=== PATIENT | female | born 1945 | race Caucasian/White ===

== ENCOUNTER 2019-12-26 16:01 | Inpatient (IN) | payer MEDICARE, OTHER ==
[~2019-12-26] VITALS: Ht 167.6 cm; Wt 86.2 kg
[2019-12-26 16:12] VITALS: BP 148/65
[2019-12-26] MEDS ORDERED: VENLAFAXINE HCL75 MG PO (16:20)
[2019-12-26] MEDS ORDERED: RISPERDAL0.5 MG PO (16:20)
[2019-12-26] MEDS ORDERED: ARICEPT10 M1 PO (16:21)
[2019-12-26] MEDS ORDERED: CRANBERRY200 MG PO (16:21)
[2019-12-26] MEDS ORDERED: GLUCOPHAGE1000 MG PO (16:21)
[2019-12-26] MEDS ORDERED: MIDODRINE HCL2.5 M1 PO (16:22)
[2019-12-26] MEDS ORDERED: LEXAPRO20 MG PO (16:22)
[2019-12-26] MEDS ORDERED: B12 ACTIVE1000 MCG PO (16:22)
[2019-12-26] MEDS ORDERED: PRANDIN1 MG PO (16:22)
[2019-12-26] MEDS ORDERED: CYPROHEPTADINE 44 MG PO (16:23)
[2019-12-26] MEDS ORDERED: MELATONIN5 M4 PO (16:23)
[2019-12-26] MEDS ORDERED: TRAZODONE HCL50 MG PO (16:23)
[2019-12-26] MEDS ORDERED: REMERON15 M1 PO (16:24)
[2019-12-26 16:26] LABS: ABSOLUTE EOSINOPHILS 0.1 thou/uL (0.0-0.7); ABSOLUTE LYMPHOCYTES 1.6 thou/uL (0.8-5.3); ABSOLUTE MONOCYTES 0.4 thou/uL (0.0-1.2); ABSOLUTE NEUTROPHILS 2.8 thou/uL (1.6-8.1); BASOPHILS 0.4 %; EOSINOPHILS 2.7 %; HEMATOCRIT 39.3 % (37.0-47.0); HEMOGLOBIN 13.1 gm/dL (12.0-15.0); LYMPHOCYTES 31.8 %; MCH 29.2 pg (26.0-34.0); MCHC 33.3 g/dL (28.0-37.0); MCV 87.4 fL (80.0-100.0); MONOCYTES 8.9 %; MPV 8.2 fl. (7.2-11.1); NUCLEATED RBCS 0 /100WBC; PLATELET COUNT* 150 thou/uL (150-400); POLYS 56.2 %; RBC 4.49 mil/uL (4.20-5.00); WBC 4.9 thou/uL (4.0-11.0)
[2019-12-26 16:34] LABS: CALCIUM 8.8 mg/dL (8.5-10.1); CREATININE 1.5 mg/dL (0.6-1.3); POTASSIUM 3.7 mmol/L (3.5-5.1)
[2019-12-26 16:35] LABS: APTT 24.6 Seconds (25.0-31.3); PROTIME 10.9 Seconds (9.20-11.50)
[2019-12-26 16:42] LABS: MAGNESIUM 1.3 mg/dL (1.8-2.4); TOTAL BILIRUBIN 0.3 mg/dL (<0.1-1.0); TOTAL PROTEIN 7.3 g/dL (6.4-8.2)
[2019-12-27 00:10] VITALS: BP 125/63
[2019-12-27 00:30] VITALS: BP 128/56
[2019-12-27 08:40] VITALS: BP 122/63
[2019-12-27 16:00] VITALS: BP 157/70
[2019-12-27 19:45] VITALS: BP 161/65
[2019-12-28] VITALS (7 sets, daily range): BP systolic 129–151; BP diastolic 51–97
[2019-12-28 04:44] LABS: HEMATOCRIT 37.7 % (37.0-47.0); HEMOGLOBIN 12.6 gm/dL (12.0-15.0); MCH 28.8 pg (26.0-34.0); MCHC 33.5 g/dL (28.0-37.0); MCV 85.9 fL (80.0-100.0); MPV 8.5 fl. (7.2-11.1); RBC 4.39 mil/uL (4.20-5.00); RDW-CV 12.8 % (10.5-14.5); WBC 3.9 thou/uL (4.0-11.0)
[2019-12-28 05:03] LABS: CALCIUM 8.1 mg/dL (8.5-10.1); POTASSIUM 4.2 mmol/L (3.5-5.1)
[2019-12-28 20:23] LABS: URINE BILIRUBIN NEGATIVE (Negative); URINE BLOOD NEGATIVE (Negative); URINE CLARITY CLEAR; URINE COLOR YELLOW; URINE GLUCOSE-RANDOM NEGATIVE (Negative); URINE KETONES TRACE (Negative); URINE LEUKOCYTES-REFLEX NEGATIVE (Negative); URINE NITRITE-REFLEX NEGATIVE (Negative); URINE PROTEIN NEGATIVE (Negative); URINE SPECIFIC GRAVITY 1.025 (1.005-1.030); URINE UROBILINOGEN 0.2 E.U./dl (0.2-1.0)
[2019-12-29 00:23] VITALS: BP 126/57
[2019-12-29 04:00] VITALS: BP 115/73
[2019-12-29 07:30] VITALS: BP 129/89
[2019-12-29 15:49] VITALS: BP 134/75
--- NOTE | 2019-12-29 17:17 | 2DMMODE ---
[place] [address] 2 D/M-MODE ECHOCARDIOGRAM Name: DARCI WRIGHT Room: [address] IN [facility]#: [id number] Admission: 12/26/19 Attend Phys: Ebenezer Randolph Discharge: Date of : 43 Date of Service: 12/29/19 1716 Report #: [id number] THIS REPORT FOR: cc: FAM - No family physician/PCP FAM - No family physician/PCP Andreas Wiggins MD [facility] ~ APPROVED REPORT Study performed: 12/29/2019 14:55:55 EXAM: Comprehensive 2D, Doppler, and color-flow Echocardiogram Patient Location: In-Patient Room #: [facility] Status: routine BSA: 1.95 HR: 57 bpm BP: 129/89 mmHg Rhythm: NSR Other Information Study Quality: Good Indications Dyspnea Elevated Troponin Chest Pain 2D Dimensions IVSd: 11.54 (7-11mm) LVOT Diam: 19.40 (18-24mm) LVDd: 37.82 mm PWd: 10.08 (7-11mm) Ascending Ao: 29.24 (22-36mm) LVDs: 25.34 (25-40mm) Aortic Root: 29.69 mm Volumes Left Atrial Volume (Systole) LA ESV Index: 21.50 mL/m2 Aortic Valve AoV Peak Raj.: 1.05 m/s AO Peak Gr.: 4.42 mmHg LVOT Max P.81 mmHg AO Mean Gr.: 2.42 mmHg LVOT Mean P.99 mmHg LVOT Max V: 1.10 m/s AO V2 VTI: 25.99 cm LVOT Mean V: 0.64 m/[place] [address] 2 D/M-MODE ECHOCARDIOGRAM Name: DARCI WRIGHT Room: [address] IN ..#: [id number] Admission: 12/26/19 Attend Phys: Ebenezer Randolph Discharge: Date of : 43 Date of Service: 12/29/19 1716 Report #: [id number] LAURA (VTI): 3.21 cm2 LVOT V1 VTI: 28.21 cm AI [place]: 1.07 m/s2 AI PHT: 820.05 ms Mitral Valve E/A Ratio: 1.05 MV Decel. Time: 213.41 ms MV E Max Raj.: 0.84 m/s MV PHT: 61.89 ms MVA (PHT): 3.55 cm2 TDI E/Lateral E': 10.50 E/Medial E': 14.00 Medial E' Raj.: 0.06 m/s Lateral E' Raj.: 0.08 m/s Pulmonary Valve PV Peak Raj.: 0.70 m/s PV Peak Gr.: 1.98 mmHg Tricuspid Valve RAP Estimate: 5.00 mmHg TR Peak Gr.: 45.74 mmHg RVSP: 50.00 mmHg PA Pressure: 50.00 mmHg Left Ventricle The left ventricle is normal size. There is normal LV segmental wall motion. There is normal left ventricular wall thickness. Left ventricular systolic function is normal. The left ventricular ejection fraction is within the normal range. LVEF is 60%. Right Ventricle Right ventricle is at the upper limits of normal. The right ventricular systolic function is normal. Atria The left atrium size is normal. The right atrium size is normal. Aortic Valve The aortic valve is normal in structure. Trace aortic regurgitation. There is no aortic valvular stenosis. Mitral Valve There is mitral annular calcification. Trace mitral regurgitation. No evidence of [place] [address] 2 D/M-MODE ECHOCARDIOGRAM Name: DARCI WRIGHT Room: [address]#: [id number] Admission: 12/26/19 Attend Phys: Ebenezer Randolph Discharge: Date of : 43 Date of Service: 12/29/19 1716 Report #: [id number] Tricuspid Valve The tricuspid valve is normal in structure. Moderate tricuspid regurgitation. Moderate pulmonary hypertension. Pulmonic Valve The pulmonary valve is normal in structure. There is no pulmonic valvular regurgitation. Great Vessels The aortic root is normal in size. IVC is normal in size and collapses >50% with inspiration. Pericardium There is no pericardial effusion. <Conclusion> The left ventricle is normal size. There is normal left ventricular wall thickness. Left ventricular systolic function is normal. The left ventricular ejection fraction is within the normal range. LVEF is 60%. Right ventricle is at the upper limits of normal. The left atrium size is normal. The aortic valve is normal in structure. Trace aortic regurgitation. There is no aortic valvular stenosis. There is mitral annular calcification. The tricuspid valve is normal in structure. Moderate tricuspid regurgitation. Moderate pulmonary hypertension. IVC is normal in size and collapses >50% with inspiration. There is no pericardial effusion. There is normal LV segmental wall motion. <ELECTRONICALLY SIGNED> By: Andreas Wiggins MD, FACC 12/29/191715 15 15 Andreas Wiggins MD, FACC /INF
[2019-12-29 18:36] VITALS: BP 132/68
[2019-12-30 04:00] VITALS: BP 109/42
[2019-12-30 07:35] VITALS: BP 112/56
--- NOTE | 2019-12-30 08:21 | EKG ---
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
[2019-12-30 16:30] VITALS: BP 109/49
[2019-12-30 20:10] VITALS: BP 113/48
[2019-12-31] VITALS (7 sets, daily range): BP systolic 132–145; BP diastolic 40–66
[2019-12-31 06:42] LABS: HEMOGLOBIN 12.1 gm/dL (12.0-15.0); MCH 29.2 pg (26.0-34.0); MCHC 34.4 g/dL (28.0-37.0); MCV 84.9 fL (80.0-100.0); MPV 8.7 fl. (7.2-11.1); RBC 4.13 mil/uL (4.20-5.00); RDW-CV 12.8 % (10.5-14.5); WBC 5.9 thou/uL (4.0-11.0)
[2019-12-31 07:06] LABS: ALBUMIN 2.8 g/dL (3.4-5.0); CALCIUM 8.3 mg/dL (8.5-10.1); CREATININE 1.1 mg/dL (0.6-1.3); MAGNESIUM 1.5 mg/dL (1.8-2.4); POTASSIUM 3.6 mmol/L (3.5-5.1); TOTAL BILIRUBIN 0.3 mg/dL (<0.1-1.0); TOTAL PROTEIN 5.9 g/dL (6.4-8.2)
[2020-01-01 00:30] VITALS: BP 125/49
[2020-01-01 04:45] VITALS: BP 136/58
[2020-01-01 08:00] VITALS: BP 123/44
[2020-01-01 12:00] VITALS: BP 153/55
[2020-01-01 15:53] VITALS: BP 131/57
[2020-01-01 20:00] VITALS: BP 155/59
[2020-01-02] VITALS: BP 108/37
[2020-01-02 03:58] VITALS: BP 131/54
[2020-01-02 05:52] LABS: HEMATOCRIT 35.5 % (37.0-47.0); MCH 28.9 pg (26.0-34.0); MCHC 33.9 g/dL (28.0-37.0); MCV 85.2 fL (80.0-100.0); MPV 8.8 fl. (7.2-11.1); RBC 4.16 mil/uL (4.20-5.00); RDW-CV 13.1 % (10.5-14.5); WBC 5.9 thou/uL (4.0-11.0)
[2020-01-02 06:04] LABS: ALBUMIN 2.8 g/dL (3.4-5.0); CALCIUM 7.9 mg/dL (8.5-10.1); MAGNESIUM 1.5 mg/dL (1.8-2.4); TOTAL BILIRUBIN 0.4 mg/dL (<0.1-1.0); TOTAL PROTEIN 6.1 g/dL (6.4-8.2)
[2020-01-02] MEDS ORDERED: ASPIR 8181 MG PO (07:33)
[2020-01-02] MEDS ORDERED: PREDNISONE10 MG PO (07:33)
[2020-01-02] MEDS ORDERED: CEFDINIR300 MG PO (07:33)
[2020-01-02 07:45] VITALS: BP 133/48
[2020-01-02 11:53] VITALS: BP 134/57
[2020-01-02 15:31] VITALS: BP 134/57
== END 2020-01-02 13:50 | disposition home or self-care (01) | DRG 177 ==
LOC: M.ERS 16:01 → M.TBA-ER 18:01 → M.ORTHSURG 18:01
PROVIDERS: Emergency Medicine Emergency Medical Services; Internal Medicine; ADMIT Internal Medicine; ATTEND Internal Medicine
PROC: XW033E5 Introduction of Remdesivir Anti-infective into Peripheral Vein, Percutaneous Approach, New Technology Group 5 (ICD-10-PCS; principal; 2019-12-29)
DX: U07.1 COVID-19 (principal); J12.89 Other viral pneumonia; J96.01 Acute respiratory failure with hypoxia; G93.41 Metabolic encephalopathy; I21.A1 Myocardial infarction type 2; N17.9 Acute kidney failure, unspecified; F03.90 Unspecified dementia, unspecified severity, without behavioral disturbance, psychotic disturbance, mood disturbance, and anxiety; N18.30 Chronic kidney disease, stage 3 unspecified; I12.9 Hypertensive chronic kidney disease with stage 1 through stage 4 chronic kidney disease, or unspecified chronic kidney disease; F32.9 Major depressive disorder, single episode, unspecified; E11.22 Type 2 diabetes mellitus with diabetic chronic kidney disease; E78.5 Hyperlipidemia, unspecified; Z79.82 Long term (current) use of aspirin; Z79.899 Other long term (current) drug therapy; Z23 Encounter for immunization